=== PATIENT | female | born 1955 | race Caucasian/White ===

== ENCOUNTER → 2024-12-28 | Outpatient (CLI) | payer MEDICARE, OTHER ==
[~2024-12-28] MED LIST: BIRTH CONTROL PILL; BUME2; CEPH500 PO; CYAN100; ERGO400; ESTMED1.5T; FURO40; GABA400; NAPR500ERA; POTCHL10ER; SPIR25; VITAMIN E100 UNI1
== END | disposition home or self-care (01) ==
LOC: LAB 15:53 → LAB SHORT 15:53
DX: L08.0 Pyoderma (principal)
CPT/HCPCS: 87070; 87077; 87147; 87186; 87205